=== PATIENT | male | born 1990 | race Caucasian/White ===

== ENCOUNTER 2018-06-17 20:38 | Emergency (ER) | payer SELFPAY ==
[2018-06-17 20:39] VITALS: BP 134/70; PULSE 70; RESP 15; TEMP 36.3; O2SAT 98; BMI 24.9
--- NOTE | 2018-06-17 21:08 | ED.DCSUM_ITS ---
- ER Visit Summary Date of Service: 06/17/18 Chief Complaint: Left ear pain History of Present Illness: The patient is a 28 M with left ear pain for several days. Today it started to spot blood. No fevers or systemic symptoms. No history of this before. No trauma. Physical Examination: External inspection unremarkable. Skin appears normal. External canal is erythematous. Tragus is tender to palpation. There is some blood spotting anteriorly. TM unremarkable. No lymphadenopathy. The remainder of his HEENT exam is unremarkable. Test Results: None performed Emergency Department Course and Treatment: Patient treated with Cortisporin otic. Given cautions. Follow-up with ENT. Treatment Plan: As above Disposition: Discharge Impression: Left otitis externa This note was generated with [employer] dictation software. It may contain incorrect words, spelling, and punctuation that were not noted in review of the chart prior to signing ED Disposition - Plan for ED Patient: Chief Complaint: Ear Problem Referrals: Care Physician,No Primary [Primary Care Provider] -
--- NOTE | 2018-06-17 21:09 | ED.DEP ---
ED Disposition - Plan for ED Patient: Chief Complaint: Ear Problem Instructions: ED Otitis Externa Prescriptions: Neomycin/Polymyxin B/Hydrocort [Ghtlsvab-Avpietvdp-Sg Ear Susp] 4 drp LEFT EAR 4X/DAY 7 Days #112 drops.susp Referrals: Quinten Shaw MD [STAFF PHYSICIAN] -
--- NOTE | 2018-06-17 21:12 | DCINST.ED_ITS ---
ED Disposition - Plan for ED Patient: Chief Complaint: Ear Problem Instructions: ED Otitis Externa Prescriptions: Neomycin/Polymyxin B/Hydrocort [Jejfuafe-Jejfzmnlw-Jr Ear Susp] 4 drp LEFT EAR 4X/DAY 7 Days #112 drops.susp Referrals: Quinten Shaw MD [STAFF PHYSICIAN] -
[2018-06-17] MEDS: Neomycin Sulfate/Polymyxin/Hc Susp 10 ML Bottle 4 DRP OTIC (21:14)
--- OUTSIDE RECORDS SUMMARY | 2018-08-22 17:17 | XMS RPT_ITS ---
:1990 Author Organization [facility] Care Team Providers Name Role Phone MAGGIE DONAHUE MD Attending Unavailable IESHA LEVIN Primary Care Unavailable MARIA A TUBBS Attending Unavailable IESHA LEVIN Primary Care Unavailable SCOOTER TYSON Attending Unavailable PHYSICIAN, NONE Primary Care Unavailable Primay Care Physicia, No Primary Care Unavailable Dwayne Lamar Attending Unavailable PROBLEMS PROBLEMS No Problem Records FoundPROCEDURES PROCEDURES No Procedure Records FoundRESULTS RESULTS EMERGENCY DEPARTMENT Observed: 06/17/2018 Status: F Source: [place] SUMMARY 11:49 PM [facility] REPOSITORY [facility] Medical Records Department [address] [place] [address] Emergency Department Summary 06/17/182106 MR#: [id number] Acct: [id number] Name: SHIRIN VALDOVINOS Rep #: [id number] : 1990 28 From: Dwayne Lamar MD PCP: Care Physician, No Primary Status: DEP ER - ER Visit Summary Date of Service: 06/17/18 Chief Complaint: Left ear pain History of Present Illness: The patient is a 28 M with left ear pain for several days. Today it started to spot blood. No fevers or systemic symptoms. No history of this before. No trauma. Physical Examination: External inspection unremarkable. Skin appears normal. External canal is erythematous. Tragus is tender to palpation. There is some blood spotting anteriorly. TM unremarkable. No lymphadenopathy. The remainder of his HEENT exam is unremarkable. Test Results: None performed Emergency Department Course and Treatment: Patient treated with Cortisporin otic. Given cautions. Follow-up with ENT. Treatment Plan: As above Disposition: Discharge Impression: Left otitis externa This note was generated with [employer] dictation software. It may contain incorrect words, spelling, and punctuation that were not noted in review of the chart prior to signing ED Disposition - Plan for ED Patient: Chief Complaint: Ear Problem Referrals: Care Physician,No Primary [Primary Care Provider] - What to do if you have Problems For any increased pain, shortness of breath, bleeding, nausea or vomiting, chest pain, or any unexpected problems, contact your Primary Care Provider. Call [facility] ([phone]) or report to the closest Emergency Room. Call 911 if necessary. 06/17/18 1151 <Electronically signed by Dwayne Lamar MD> Date Dwayne Lamar MD Cosigner Signature (If Indicated): Date CC: No Primary Care Physician DISCHARGE INSTRUCTION Observed: 06/17/2018 Status: F Source: [place] 11:49 PM [facility] REPOSITORY [facility] Medical Records Department [address] [place] [address] Discharge Instruction 06/17/182108 MR#: [id number] Acct: [id number] Name: SHIRIN VALDOVINOS Rep #: [id number] : 1990 28 From: Dwayne Lamar MD PCP: Care Physician, No Primary Status: DEP ER ED Disposition - Plan for ED Patient: Chief Complaint: Ear Problem Instructions: ED Otitis Externa Prescriptions: Neomycin/Polymyxin B/Hydrocort [Nwcbwshm-Yqhleuxfz-Gj Ear Susp] 4 drp LEFT EAR 4X/DAY 7 Days #112 drops.susp Referrals: Quinten Shaw MD [STAFF PHYSICIAN] - What to do if you have Problems For any increased pain, shortness of breath, bleeding, nausea or vomiting, chest pain, or any unexpected problems, contact your Primary Care Provider. Call [facility] ([phone]) or report to the closest Emergency Room. Call 911 if necessary. 06/17/18 2349 <Electronically signed by Dwayne Lamar MD> Date Dwayne Lamar MD Cosigner Signature (If Indicated): Date CC: No Primary Care Physician XR CHEST 2 VIEWS Observed: 09/27/2017 Status: F Source: [place] 5:39 PM [facility] REPOSITORY ORIGINAL XR CHEST 2 VIEWS Clinical Statement: Chest Pain Comparison: None FINDINGS: The cardiomediastinal silhouette is normal in appearance. No consolidation, pleural effusion, or vascular congestion is seen. The osseous structures are intact. IMPRESSION: No acute findings. I have personally reviewed the images of this examination and agree with the resident's findings and interpretation. Interpreted By: Joseph Fitzgerald MD Preliminary Report By: Darian Parra MD Electronically Signed By: Joseph Fitzgerald MD Dictated Date: 09/27/2017 5:54:22 PM Prelim Date: 09/27/2017 5:54:56 PM Sign Date: 09/27/2017 6:09:44 PM CBC Collected: 09/27/2017 Status: F Source: [place] 5:38 PM [facility] REPOSITORY TYPE CODE TESTS RESULT OUT OF REFERENCE UNITS RANGE LAB WBC(LOINC) 4.60-10.80 10 3/mcL WBC 9.70 LAB RBCCT(LOINC 4.04-6.13 10 6/mcL ) RBC 4.94 LAB HGB(LOINC) 14.0-18.0 G/dL Hgb 14.9 LAB HCT(LOINC) 42.0-52.0 % Hct 42.2 LAB MCV(LOINC) 80.0-94.0 fL MCV 85.5 LAB MCH(LOINC) 27.0-31.2 pg MCH 30.1 LAB MCHC(LOINC) 31.8-35.4 G/dL MCHC 35.2 LAB RDW(LOINC) 11.5-14.5 % RDW 13.2 LAB PLT(LOINC) 130-400 10 3/mcL Platelet 257 LAB MPV(LOINC) 7.4-10.4 fL MPV 9.1 Performed By: #### CBC, ADIFF, ANEU, TROP, BMP, DIMER, GFR #### [address] [address] .AUTO DIFF Collected: 09/27/2017 Status: F Source: [facility] 5:38 PM [facility] REPOSITORY TYPE CODE TESTS RESULT OUT OF REFERENCE UNITS RANGE LAB REY(LOINC) 37.0-80.0 % Neutrophil % 52.5 LAB LYM(LOINC) 10.0-50.0 % Lymphocyte % 33.9 LAB MON(LOINC) 1.7-13.0 % Monocyte % 6.1 LAB EO(LOINC) 0.0-7.0 % Eosinophil % 6.9 LAB BAS(LOINC) 0.0-2.5 % Basophil % 0.6 LAB ABLYM(LOIN 0.77-3.85 10 3/mcL C) Lymphocyte, 3.30 Absolute LAB ARLINE(LOINC 0.15-1.00 10 3/mcL ) Monocyte, 0.60 Absolute LAB AEOS(LOINC 0.00-0.40 10 3/mcL ) High Eosinophil, 0.70 Absolute LAB ABAS(LOINC 0.00-0.19 10 3/mcL ) Basophil, 0.10 Absolute Performed By: #### CBC, ADIFF, ANEU, TROP, BMP, DIMER, GFR #### [address] [place], [place] [address] .NEUABS Collected: 09/27/2017 Status: F Source: [facility] 5:38 [facility] REPOSITORY TYPE CODE TESTS RESULT OUT OF REFERENCE UNITS RANGE LAB ANEU(LOINC) 2.85-6.16 10 3/mcL Neutrophil, 5.10 Absolute Performed By: #### CBC, ADIFF, ANEU, TROP, BMP, DIMER, GFR #### [address] [place], [place] [address] TROP Collected: 09/27/2017 Status: F Source: [facility] 5:38 [facility] REPOSITORY TYPE CODE TESTS RESULT OUT OF REFERENCE UNITS RANGE LAB TROP(LOINC) 0.00-0.30 ng/mL Troponin <0.30 Result Comment: Below measuring range >=0.30 Consistent with cardiac damage, increased clinical risk and possibility of myocardial infarction. Serial measurements, clinical history, appropriate symptoms and/or ECG changes may help assess possibility of DC. *Other non-acute coronary syndrome conditions such as CHF, myocarditis, pulmonary emboli, sepsis and cardiac surgery could result in myocardial damage and increased troponin levels. Performed By: #### CBC, ADIFF, ANEU, TROP, BMP, DIMER, GFR #### [address] [address] BMP Collected: 09/27/2017 Status: F Source: [facility] 5:38 [facility] REPOSITORY TYPE CODE TESTS RESULT OUT OF REFERENCE UNITS RANGE LAB 1547-9 70-105 mg/dL GLUCOSE 88 LAB NA(LOINC) 136-146 mEq/L Sodium Level 139 LAB K(LOINC) 3.5-5.1 mEq/L Potassium Level 4.8 LAB CL(LOINC) 98-107 mEq/L Chloride 102 LAB CO2(LOINC) 22-29 mEq/L CO2 High 30 LAB EBAL(LOINC mEq/L ) Electrolyte Balance 7.0 LAB BUN(LOINC) 7.0-18.0 mg/dL BUN 9.5 LAB CRE(LOINC) 0.6-1.2 mg/dL Creatinine Lvl (s) 0.9 LAB BC(LOINC) 7-27 ratio BUN/Creatinine 11 Ratio LAB CA(LOINC) 8.4-10.2 mg/dL Calcium Lvl 9.7 Performed By: #### CBC, ADIFF, ANEU, TROP, BMP, DIMER, GFR #### [place] [address] [place], [place] [address] DIMER Collected: 09/27/2017 Status: F Source: [facility] 5:38 PM [facility] REPOSITORY TYPE CODE TESTS RESULT OUT OF RANGE REFERENCE UNITS LAB DIMER(LOINC <=0.49 mcg/mL FEU ) D-Dimer 0.20 Result Comment: The result of the D-Dimer test should be evaluated in the context of all the clinical and laboratory data available. In those instances where the laboratory result does not agree with the clinical evaluation, additional tests should be performed accordingly. Performed By: #### CBC, ADIFF, ANEU, TROP, BMP, DIMER, GFR #### [address] [place], [place] [address] .GFR Collected: 09/27/2017 Status: F Source: [place] 5:38 PM [facility] REPOSITORY TYPE CODE TESTS RESULT OUT OF REFERENCE UNITS RANGE LAB GFRAA(LOINC ml/min/1.73 ) sqm GFR 133 [place] Result Comment: GFR Population mean for , Non- Americans Ages 20-29 = 116 mL/min/1.73 sq.m. Ages 30-39 = 107 mL/min/1.73 sq.m. Ages 40-49 = 99 mL/min/1.73 sq.m. Ages 50-59 = 93 mL/min/1.73 sq.m. Ages 60-69 = 85 mL/min/1.73 sq.m. Ages 70+ = 75 mL/min/1.73 sq.m. Chronic Kidney Disease: Less than 60 mL/min/1.73 square meters End Stage Renal Disease: Less than 15 mL/min/1.73 square meters LAB GFRNO(LOINC) ml/min/1.73sqm GFR Non- >60 Result Comment: GFR Population mean for , Non- Americans Ages 20-29 = 116 mL/min/1.73 sq.m. Ages 30-39 = 107 mL/min/1.73 sq.m. Ages 40-49 = 99 mL/min/1.73 sq.m. Ages 50-59 = 93 mL/min/1.73 sq.m. Ages 60-69 = 85 mL/min/1.73 sq.m. Ages 70+ = 75 mL/min/1.73 sq.m. Chronic Kidney Disease: Less than 60 mL/min/1.73 square meters End Stage Renal Disease: Less than 15 mL/min/1.73 square meters Performed By: #### CBC, ADIFF, ANEU, TROP, BMP, DIMER, GFR #### [address] [place], [place] [address] ALLERGIES ALLERGIES DATE TYPE / CODE NAME / CODE REACTION SEVERITY SOURCE 06/17/2018 Drug fluoxetine/F Other Unknown [facility] Allergy/4160 [id number]([facility] 33237(SNOMED NORM) Repository CT) ENCOUNTERS ENCOUNTERS ADMIT/DISCHARGE ACCOUNT NUMBER ADMITTING ENCOUNTER LOCATION SOURCE CLASS 06/17/2018/06/17/19 [id number] Emergency Anna Meno 19 [facility] ding:ED Repository 03/11/2018/03/11/20 [id number] Emergency BBuilding:ER [address] Repository 09/27/2017/09/28/19 [id number] Emergency BBuilding:ER [address] Repository 08/03/2017/08/04/19 [id number] Emergency BBuilding:ER [address] Repository PAYERS PAYERS ENCOUNTER GUARANTOR PAYER SUBSCRIBER SOURCE 06/17/2018 SHIRIN VU Primary NOT GIVENUNK Anna 06/[address] Insurance:SELF [place], [place] [address]Hfe: Number: Effective Repository Date:2018-06-17 () 03/11/2018 SHIRIN VALDOVINOSDOB: Primary SHIRIN E MILAMDOB: [facility] s Insurance:SELF [id number] Number: s fourth Repository [place], [place], [place] [address]Zvd: 330) Date:[id number]: [phone] Name:[phone] ()Tel: [phone] () ([phone] () 09/27/2017 SHIRIN CONNORSAMDOB: Primary SHIRIN E MILAMDOB: [facility] [id number] S Insurance:SELF [id number] [facility] [address] PAYPolicy Number: [facility] APT Repository [address] Effective [address] [address]Kia: (330) Date:2017-09-27 [address]Orn: [id number] Name:[phone] (HP)Tel: [phone] () (WP) [phone] (WP) 08/03/2017 SHIRIN VALDOVINOSDOB: Primary SHIRIN Aguila [facility]: [employer] S Insurance:SELF [id number] [place], PAYPolicy Number: [address] [place], Repository [place] [address]Xpd: Effective [place] [address]Ddw: Date:2017-08-03 - ()Tel: [phone] Name:[phone] (HP) (WP [phone] (WP)
== END 2018-06-17 21:30 | disposition home or self-care (01) ==
LOC: ED 21:29
PROVIDERS: Emergency Provider Emergency Medicine
DX: H60.92 Unspecified otitis externa, left ear (principal); Z72.0 Tobacco use
CPT/HCPCS: 99282